=== PATIENT | female | born 1965 | race African-American/Black ===

== ENCOUNTER → 2018-04-05 | Outpatient (CLI) | payer OTHER ==
--- NOTE | 2018-04-05 16:53 | KCIC ---
Examination: Ultrasound thyroid HISTORY: History of hyperthyroidism COMPARISON: None available FINDINGS: The right lobe of the thyroid gland measures 5.4 x 1.6 x 1.4 cm. The left lobe of thyroid gland measures 5.1 x 1.9 x 1.4 cm. The isthmus measures 3.7 mm in AP dimension. Tiny 2.7 mm nodule identified in the inferior right lobe of the thyroid gland. There is 3.3 mm nodule identified in the medial left lobe of the thyroid gland. IMPRESSION: Tiny subcentimeter nodules identified in the thyroid gland. Benign findings ACR TR 1. Benign Electronically signed by: Loyd Malcolm MD (04/05/2018 4:48 PM) [place] [id number]
== END | disposition home or self-care (01) ==
LOC: KCIC US 11:04
PROVIDERS: ATTEND Physician Assistant Surgical
DX: E05.90 Thyrotoxicosis, unspecified without thyrotoxic crisis or storm (principal); E04.2 Nontoxic multinodular goiter
CPT/HCPCS: 76536

== ENCOUNTER → 2018-07-26 | Outpatient (CLI) | payer OTHER ==
--- NOTE | 2018-07-26 10:12 | KCIC ---
Bilateral digital screening mammogram and right breast ultrasound History: Recent right outer breast pain, resolved 2 weeks ago. No breast lump or any other breast symptoms reported. Bilateral digital CC and MLO views were obtained with mammography. Computer aided detection was utilized with iCAD Second Look 7.2-H. Previous: No priors. This exam is the patient's baseline mammogram. Mammogram: There are scattered fibroglandular densities (Level 2 density).There are no suspicious masses, suspicious microcalcifications or areas of architectural distortion. No suspicious abnormality at the right outer breast area of prior pain. ULTRASOUND: Right breast sonography of the outer breast demonstrates no abnormality including no mass, distortion, or shadowing. IMPRESSION: Negative bilateral mammogram and right breast ultrasound. The patient's breast symptoms be followed clinically. Patient information was entered into the [employer] reminder system with a target due date for the next screening mammogram. Routine annual screening mammogram in one year advised. BI-RADS Category 1: Negative. If your mammogram demonstrates that you have dense breast tissue, which could hide abnormalities, and if you have other risk factors for breast cancer that have been identified, you might benefit from supplemental screening tests that may be suggested by your ordering physician. Dense breast tissue, in and of itself, is a relatively common condition. This information is not provided to cause undue concern, but rather to raise your awareness and to promote discussion with your physician regarding the presence of other risk factors, in addition to dense breast tissue. A report of your mammography results will be sent to you and your physician. You should contact your physician if you have any questions or concerns regarding this report. A mammogram does not have 100% sensitivity and therefore a negative imaging study should not delay further work up of a suspicious abnormality. "Our facility is accredited by the [employer] Mammography Program." Electronically signed by: Henrique Wolfe MD (07/26/2018 10:09 AM) [id number]
== END | disposition home or self-care (01) ==
LOC: KCIC MAMMO 08:37
PROVIDERS: ATTEND Physician Assistant Surgical
DX: N64.4 Mastodynia (principal)
CPT/HCPCS: 76641; 77066

== ENCOUNTER → 2020-03-21 | Outpatient (CLI) | payer OTHER ==
--- NOTE | 2020-03-21 12:02 | KCIC ---
EXAM: Bilateral feet and ankles, 3 views. HISTORY: Pain. COMPARISON: None. FINDINGS: 3 views of both feet and ankles are obtained. There is no fracture, dislocation or subluxat ion. There is no osteochondral lesion. There is a tiny left plantar spur. There is minimal enthesopat hy at the Achilles tendon insertions. There is minimal bilateral first metatarsal phalangeal joint sp urring. IMPRESSION: No acute osseous finding. Electronically signed by: Aletha Mckeon MD (03/21/2020 12:00 PM) [id number]
== END ==
LOC: KCIC 10:46
PROVIDERS: ATTEND Family Medicine
DX: M77.8 Other enthesopathies, not elsewhere classified (principal); M79.672 Pain in left foot; M79.671 Pain in right foot; M25.571 Pain in right ankle and joints of right foot; M25.572 Pain in left ankle and joints of left foot
CPT/HCPCS: 73610; 73630

== ENCOUNTER → 2020-08-06 | Outpatient (CLI) | payer OTHER ==
--- NOTE | 2020-08-06 15:11 | KCIC ---
EXAM: Left hand, 4 views. HISTORY: Pain. COMPARISON: None. FINDINGS: 4 views of the left hand are obtained. There is no acute fracture, dislocation or subluxati on. There are small cysts within the scaphoid and capitate. There is minimal spurring at the first ca rpometacarpal joint. IMPRESSION: No acute osseous finding. Mild first carpometacarpal joint osteoarthritis. Electronically signed by: Aletha Mckeon MD (08/06/2020 3:09 PM) [id number]
== END ==
LOC: KCIC 14:40
PROVIDERS: ATTEND Family Medicine
DX: M18.12 Unilateral primary osteoarthritis of first carpometacarpal joint, left hand (principal); M77.8 Other enthesopathies, not elsewhere classified; M65.312 Trigger thumb, left thumb
CPT/HCPCS: 73130

== ENCOUNTER → 2021-03-28 | Outpatient (CLI) | payer OTHER ==
--- NOTE | 2021-03-28 09:34 | RAD ---
EXAM: ULTRASOUND PELVIS INDICATION: Pelvic pain. COMPARISON: None available. FINDINGS: The uterus is not identified likely prior hysterectomy changes. The right ovary measures 2.1 x 1.3 x 1.3 cm. The left ovary measures 2.2 x 1.8 x 1.8 cm. Blood flow identified in the right and left ovari es. The urinary bladder is within normal limits. IMPRESSION: 1. Changes of hysterectomy. Otherwise unremarkable exam. Electronically signed by: Loyd Malcolm MD (03/28/2021 9:31 AM) [id number]
--- NOTE | 2021-03-28 09:38 | RAD ---
EXAM: ULTRASOUND ABDOMEN COMPLETE CLINICAL HISTORY: Abdominal pain COMPARISON: None available. TECHNIQUE: Ultrasound of the upper abdomen was performed. FINDINGS: The liver length measures 15.1 cm. Visualized aorta, IVC within normal limits of dimension. The gallb ladder is mildly distended. The common bile duct measures 2.8 mm in transverse dimension. The right k idney measures 12.2 x 4.4 x 5.3 cm. The spleen measures 6.1 cm in length. The left kidney measures 10 .4 x 4.2 x 4.7 cm. IMPRESSION: Unremarkable exam. Electronically signed by: Loyd Malcolm MD (03/28/2021 9:36 AM) [id number]
== END ==
LOC: US 07:54
PROVIDERS: ATTEND Family Medicine
DX: R10.2 Pelvic and perineal pain (principal); R10.84 Generalized abdominal pain; Z90.710 Acquired absence of both cervix and uterus
CPT/HCPCS: 76700; 76856